=== PATIENT | female | born 1960 | race Caucasian/White ===

== ENCOUNTER 2018-08-28 12:06 | Day surgery (SDC) | payer MEDICARE ==
[~2018-08-28 12:06] MED LIST: LIDOCAINE 2% INJ 100 MG/5 ML SDV (FOR ANES.) As Ordered; PROPOFOL 200 MG/20 ML VIAL As Ordered
[2018-08-28] MEDS ORDERED: NS 1,000 ML IV (13:15)
[2018-08-28] MEDS ORDERED: PROPOFOL 200 MG/20 ML VIAL As Ordered (14:14)
== END 2018-08-28 14:45 | disposition home or self-care (01) ==
LOC: M OPP 12:06
DX: K29.70 Gastritis, unspecified, without bleeding (principal); K31.89 Other diseases of stomach and duodenum; Z87.19 Personal history of other diseases of the digestive system; K21.9 Gastro-esophageal reflux disease without esophagitis; R12 Heartburn; M19.90 Unspecified osteoarthritis, unspecified site; M48.00 Spinal stenosis, site unspecified; G43.909 Migraine, unspecified, not intractable, without status migrainosus; Z78.0 Asymptomatic menopausal state; R06.83 Snoring; Z87.442 Personal history of urinary calculi; Z98.1 Arthrodesis status; F17.210 Nicotine dependence, cigarettes, uncomplicated; Z88.5 Allergy status to narcotic agent; Z91.013 Allergy to seafood; Z80.3 Family history of malignant neoplasm of breast; Z80.8 Family history of malignant neoplasm of other organs or systems
CPT/HCPCS: 43239

== ENCOUNTER → 2018-08-28 | Outpatient (CLI) | payer MEDICARE ==
[2018-08-28 12:45] LABS: BASO # 0.1 10^3/uL (0.0-0.2); BASO % 1.1 % (0.0-1.0); EOS # 0.2 10^3/uL (0.0-0.50); EOS % 2.1 % (0.0-3.0); HEMATOCRIT 43.3 % (36.0-47.0); IMMATURE GRANULOCYTE % 0.4 % (0-3.0); LYMPH # 3.1 10^3/uL (1.5-4.5); LYMPH % 37.9 % (24.0-44.0); MEAN CORPUSCULAR HEMOGLOBIN 31.6 pg (27.0-33.0); MEAN CORPUSCULAR HGB CONC 34.6 g/dl (32.0-36.5); MEAN CORPUSCULAR VOLUME 91.4 fl (80.0-96.0); MONO # 0.5 10^3/uL (0.0-0.8); MONO % 6.4 % (0.0-5.0); NEUTROPHILS # 4.2 10^3/uL (1.8-7.7); NEUTROPHILS % 52.1 % (36.0-66.0); PLATELET COUNT, AUTOMATED 243 10^3/uL (150-450); RED BLOOD COUNT 4.74 10^6/uL (4.00-5.40); RED CELL DISTRIBUTION WIDTH 12.1 % (11.5-14.5); WHITE BLOOD COUNT 8.1 10^3/uL (4.0-10.0)
[2018-08-28 13:42] LABS: GOLD SPEC TUBE RECIEVED
[2018-08-29 00:04] LABS: BLOOD UREA NITROGEN 11 MG/DL (7-18)
[2018-08-29 00:04] LABS: CREATININE FOR GFR 0.65 MG/DL (0.55-1.30); FERRITIN 183 NG/ML (8-252); GLOMERULAR FILTRATION RATE > 60.0 (>51); IRON (FE) 99 UG/DL (50-170); PERCENT SATURATION 25.3 % (13.2-45.0); TOTAL IRON BINDING CAPACITY 392 UG/DL (250-450)
[2018-08-29 00:09] LABS: FOLATE 19.2 NG/ML
[2018-08-31 00:08] LABS: ANTI-PARIETAL CELL ANTIBODY 1.1 Units (0.0-20.0)
[2018-08-31 00:08] LABS: INTRINSIC FACTOR ANTIBODY 1.1 AU/mL (0.0-1.1)
== END ==
LOC: M LAB 11:48
DX: K29.70 Gastritis, unspecified, without bleeding (principal)

== ENCOUNTER → 2019-02-27 | Outpatient (REF) | payer MEDICARE ==
[~2019-02-27] MED LIST changes: -LIDOCAINE 2% INJ 100 MG/5 ML SDV (FOR ANES.) As Ordered; -PROPOFOL 200 MG/20 ML VIAL As Ordered; +VITA200016 PO; +VITA500T3 PO
== END ==
LOC: M LAB LCGH 14:59
PROVIDERS: ATTEND Nurse Practitioner Family
DX: D22.5 Melanocytic nevi of trunk (principal)

== ENCOUNTER → 2020-08-18 | Outpatient (CLI) | payer MEDICARE ==
[~2020-08-18] MED LIST changes: +CYAN500T8 PO; -VITA500T3 PO
[2020-08-18 14:10] LABS: BASO # 0.1 10^3/uL (0.0-0.2); BASO % 0.7 % (0.0-1.0); EOS # 0.2 10^3/uL (0.0-0.5); HEMATOCRIT 43.3 % (36.0-47.0); LYMPH % 36.9 % (24.0-44.0); MEAN CORPUSCULAR HEMOGLOBIN 30.4 pg (27.0-33.0); MEAN CORPUSCULAR HGB CONC 32.3 g/dl (32.0-36.5); MEAN CORPUSCULAR VOLUME 93.9 fl (80.0-96.0); MONO # 0.6 10^3/uL (0.0-0.8); MONO % 6.8 % (0.0-5.0); NEUTROPHILS # 4.4 10^3/uL (1.5-8.5); NEUTROPHILS % 53.2 % (36.0-66.0); PLATELET COUNT, AUTOMATED 249 10^3/uL (150-450); RED BLOOD COUNT 4.61 10^6/uL (4.00-5.40); WHITE BLOOD COUNT 8.2 10^3/uL (4.0-10.0)
[2020-08-18 14:42] LABS: ALBUMIN 3.8 GM/DL (3.2-5.2); ALT/SGPT 21 U/L (12-78); BILIRUBIN,DIRECT 0.1 MG/DL (0.0-0.2); BILIRUBIN,TOTAL 0.4 MG/DL (0.2-1.0); BLOOD UREA NITROGEN 13 MG/DL (7-18); CREATININE FOR GFR 0.82 MG/DL (0.55-1.30); GLOMERULAR FILTRATION RATE > 60.0 (>51); IRON (FE) 82 UG/DL (50-170); PERCENT SATURATION 20.4 % (13.2-45.0); TOTAL IRON BINDING CAPACITY 401 UG/DL (250-450); TOTAL PROTEIN 7.3 GM/DL (6.4-8.2)
[2020-08-18 14:51] LABS: VITAMIN B12 LEVEL 974 PG/ML (247-911)
[2020-08-18 14:52] LABS: FOLATE 9.9 NG/ML (>5.4)
[2020-08-18 14:58] LABS: H PYLORI QUALITATIVE IgG NEGATIVE (NEGATIVE)
== END ==
LOC: M LAB 12:48
PROVIDERS: ATTEND Internal Medicine Gastroenterology
DX: K29.70 Gastritis, unspecified, without bleeding (principal)

== ENCOUNTER → 2020-10-04 | Outpatient (CLI) | payer MEDICARE ==
[~2020-10-04] MED LIST changes: +PEPC40TA12 PO
== END ==
LOC: M LABSMTC 10:08
PROVIDERS: ATTEND Anesthesiology
DX: Z01.812 Encounter for preprocedural laboratory examination (principal); Z20.828 Contact with and (suspected) exposure to other viral communicable diseases

== ENCOUNTER 2020-10-09 11:48 | Day surgery (SDC) | payer MEDICARE ==
[~2020-10-09] VITALS: Ht 167.6 cm; Wt 79.4 kg
[~2020-10-09 11:48] MED LIST changes: +CYAN500T14 PO; -CYAN500T8 PO; +NS 1,000 ML IV ONE
[2020-10-09] MEDS ORDERED: propofoL 500 MG/50 ML VIAL As Ordered ONE (13:57)
[2020-10-09] MEDS ORDERED: LIDOCAINE 2% 100MG/5ML SDV (FOR ANES.) As Ordered ONE (13:57)
[2020-10-09] MEDS ORDERED: fentaNYL 100 MCG/2 ML INJECTION (J3010) As Ordered ONE (13:57)
[2020-10-09] MEDS ORDERED: ePHEDrine SULFATE 25 MG/5 ML(5MG/ML) SYRINGE As Ordered ONE (14:15)
--- NOTE | 2020-10-09 14:46 | ROOR ---
Patient Name: Munira Bernabe Procedure Date: 10/09/2020 2:00 PM Date of : 1960 Age: 60 Room: [facility] Gender: Female Note Status: Finalized Procedure: Upper GI endoscopy Indications: Epigastric abdominal pain Providers: Kyle Donovan MD Referring MD: 1. No Referring Physician 1. No Referring Physician, Admin. Requesting Provider: Medicines: Monitored Anesthesia Care Complications: No immediate complications. Procedure: Pre-Anesthesia Assessment: - Prior to the procedure, a History and Physical was performed, and patient medications and allergies were reviewed. The patient is competent. The risks and benefits of the procedure and the sedation options and risks were discussed with the patient. All questions were answered and informed consent was obtained. Patient identification and proposed procedure were verified by the physician, the nurse and the anesthesiologist in the procedure room. Mental Status Examination: alert and oriented. Airway Examination: normal oropharyngeal airway and neck mobility. Respiratory Examination: clear to auscultation. CV Examination: normal. Prophylactic Antibiotics: The patient does not require prophylactic antibiotics. Prior Anticoagulants: The patient has taken no previous anticoagulant or antiplatelet agents. ASA Grade Assessment: II - A patient with mild systemic disease. After reviewing the risks and benefits, the patient was deemed in satisfactory condition to undergo the procedure. The anesthesia plan was to use monitored anesthesia care (MAC). Immediately prior to administration of medications, the patient was re-assessed for adequacy to receive sedatives. The heart rate, respiratory rate, oxygen saturations, blood pressure, adequacy of pulmonary ventilation, and response to care were monitored throughout the procedure. The physical status of the patient was re-assessed after the procedure. The Endoscope was introduced through the mouth, and advanced to the second part of duodenum. The upper GI endoscopy was accomplished without difficulty. The patient tolerated the procedure well. Findings: The examined esophagus was normal. Scattered moderate inflammation characterized by erosions, erythema, friability, granularity and linear erosions was found in the gastric body and in the gastric antrum. Biopsies were taken with a cold forceps for Helicobacter pylori testing. Verification of patient identification for the specimen was done by the physician and nurse using the patient's name, date and medical record number. Estimated blood loss was minimal. Scattered moderate inflammation characterized by erythema, friability and granularity was found in the duodenal bulb and in the second portion of the duodenum. Biopsies for histology were taken with a cold forceps for evaluation of celiac disease. Impression: - Normal esophagus. - Gastritis. Biopsied. - Duodenitis. Biopsied. Recommendation: - Patient has a contact number available for emergencies. The signs and symptoms of potential delayed complications were discussed with the patient. Return to normal activities tomorrow. Written discharge instructions were provided to the patient. - High fiber diet. - Continue present medications. - Await pathology results. - Use Protonix (pantoprazole) 40 mg PO twice daily - to be taken in morning (1/2 hour before breakfast) and at bedtime ( atleast 3 hours after last meal) for 6 weeks. - Telephone GI clinic for pathology results in 2 weeks. - Return to primary care physician. Procedure Code(s): --- Professional --- 54430, Esophagogastroduodenoscopy, flexible, transoral; with biopsy, single or multiple Diagnosis Code(s): --- Professional --- K29.70, Gastritis, unspecified, without bleeding K29.80, Duodenitis without bleeding R10.13, Epigastric pain CPT copyright 2019 [employer]. All rights reserved. The codes documented in this report are preliminary and upon bindery operator review may be revised to meet current compliance requirements. Kyle Donovan MD Kyle Donovan MD 10/09/2020 2:46:03 PM Electronically signed by Kyle Donovan MD Number of Addenda: 0 Note Initiated On: 10/09/2020 2:00 PM Estimated Blood Loss: Estimated blood loss was minimal.
[2020-10-09 14:52] VITALS: BP 134/60
--- NOTE | 2020-10-09 15:09 | ROOR ---
Patient Name: Munira Bernabe Procedure Date: 10/09/2020 2:01 PM Date of : 1960 Age: 60 Room: [facility] Gender: Female Note Status: Finalized Procedure: Colonoscopy Indications: Chronic diarrhea Providers: Kyle Donovan MD Referring MD: 1. No Referring Physician 1. No Referring Physician, Admin. Requesting Provider: Medicines: Monitored Anesthesia Care Complications: No immediate complications. Procedure: Pre-Anesthesia Assessment: - Prior to the procedure, a History and Physical was performed, and patient medications and allergies were reviewed. The patient is competent. The risks and benefits of the procedure and the sedation options and risks were discussed with the patient. All questions were answered and informed consent was obtained. Patient identification and proposed procedure were verified by the physician. Mental Status Examination: alert and oriented. Airway Examination: normal oropharyngeal airway and neck mobility. Respiratory Examination: clear to auscultation. CV Examination: normal. Prophylactic Antibiotics: The patient does not require prophylactic antibiotics. Prior Anticoagulants: The patient has taken no previous anticoagulant or antiplatelet agents. ASA Grade Assessment: II - A patient with mild systemic disease. After reviewing the risks and benefits, the patient was deemed in satisfactory condition to undergo the procedure. The anesthesia plan was to use monitored anesthesia care (MAC). Immediately prior to administration of medications, the patient was re-assessed for adequacy to receive sedatives. The heart rate, respiratory rate, oxygen saturations, blood pressure, adequacy of pulmonary ventilation, and response to care were monitored throughout the procedure. The physical status of the patient was re-assessed after the procedure. The Colonoscope was introduced through the anus and advanced to the terminal ileum, with identification of the appendiceal orifice and IC valve. The colonoscopy was performed without difficulty. The patient tolerated the procedure well. The quality of the bowel preparation was good. The terminal ileum, ileocecal valve, appendiceal orifice, and rectum were photographed. Scope insertion time was 3 minutes. Scope withdrawal time was 9 minutes. The total duration of the procedure was 12 minutes. Findings: The perianal and digital rectal examinations were normal. Three sessile polyps were found in the transverse colon and ascending colon. The polyps were 3 to 5 mm in size. These polyps were removed with a cold snare. Resection and retrieval were complete. Non-bleeding external and internal hemorrhoids were found during retroflexion. The hemorrhoids were medium-sized. Normal mucosa was found in the entire colon. Biopsies for histology were taken with a cold forceps from the right colon and left colon for evaluation of microscopic colitis. A single small angioectasia without bleeding was found at the ileocecal valve. Impression: - Three 3 to 5 mm polyps in the transverse colon and in the ascending colon, removed with a cold snare. Resected and retrieved. - Non-bleeding external and internal hemorrhoids. - Normal mucosa in the entire examined colon. Biopsied. - A single non-bleeding colonic angioectasia. Recommendation: - Patient has a contact number available for emergencies. The signs and symptoms of potential delayed complications were discussed with the patient. Return to normal activities tomorrow. Written discharge instructions were provided to the patient. - Continue present medications. - Await pathology results. - Resume previous diet. - Repeat colonoscopy in 3 - 5 years for surveillance based on pathology results. - Telephone GI clinic for pathology results in 2 weeks. - Return to primary care physician. Procedure Code(s): --- Professional --- 34441, Colonoscopy, flexible; with removal of tumor(s), polyp(s), or other lesion(s) by snare technique 40329, 59, Colonoscopy, flexible; with biopsy, single or multiple Diagnosis Code(s): --- Professional --- K63.5, Polyp of colon K64.8, Other hemorrhoids K55.20, Angiodysplasia of colon without hemorrhage K52.9, Noninfective gastroenteritis and colitis, unspecified CPT copyright 2019 [employer]. All rights reserved. The codes documented in this report are preliminary and upon sign poster review may be revised to meet current compliance requirements. Kyle Donovan MD Kyle Donovan MD 10/09/2020 3:09:25 PM Electronically signed by Kyle Donovan MD Number of Addenda: 0 Note Initiated On: 10/09/2020 2:01 PM Estimated Blood Loss: Estimated blood loss: none.
== END 2020-10-09 15:00 | disposition home or self-care (01) ==
LOC: M OPP 11:48
PROVIDERS: ATTEND Internal Medicine Gastroenterology
DX: K63.5 Polyp of colon (principal); K55.20 Angiodysplasia of colon without hemorrhage; K64.8 Other hemorrhoids; K52.9 Noninfective gastroenteritis and colitis, unspecified; K29.70 Gastritis, unspecified, without bleeding; K29.80 Duodenitis without bleeding; R10.13 Epigastric pain; K76.0 Fatty (change of) liver, not elsewhere classified; Z88.5 Allergy status to narcotic agent; Z87.891 Personal history of nicotine dependence
CPT/HCPCS: 43239; 45380; 45385; 88305; J3010

== ENCOUNTER → 2022-12-19 | Outpatient (CLI) | payer MEDICARE ==
[~2022-12-19] MED LIST changes: +AUGM500T34 PO; +B-12100010 PO; +D3 S1CAP3 PO; +LETR2.5T2 PO; -NS 1,000 ML IV ONE; +TRAM50TA2 PO; +VITA250T26 PO; +ZINC100T3 PO; +ZINC30CA PO; +[UNRECOGNIZED DRUG - OTHER] PO
== END ==
LOC: M PLALAB 12:13
PROVIDERS: ATTEND Surgery
DX: Z13.71 Encounter for nonprocreative screening for genetic disease carrier status (principal); Z80.3 Family history of malignant neoplasm of breast; Z80.8 Family history of malignant neoplasm of other organs or systems

== ENCOUNTER → 2022-12-21 | Outpatient (CLI) | payer MEDICARE ==
[~2022-12-21] MED LIST changes: -AUGM500T34 PO; -D3 S1CAP3 PO; -LETR2.5T2 PO; -TRAM50TA2 PO; -ZINC30CA PO; -[UNRECOGNIZED DRUG - OTHER] PO
[2022-12-21 16:35] VITALS: BP 130/84
== END ==
LOC: M WHCPRO 14:47
PROVIDERS: ATTEND Surgery
DX: C34.92 Malignant neoplasm of unspecified part of left bronchus or lung (principal); N63.25 Unspecified lump in the left breast, overlapping quadrants
CPT/HCPCS: 10035; 77065; A4648

== ENCOUNTER 2023-01-10 06:19 | Day surgery (SDC) | payer MEDICARE ==
[~2023-01-10] VITALS: Ht 167.6 cm; Wt 75.3 kg
[~2023-01-10 06:19] MED LIST changes: +D3 S1CAP3 PO; +HEPARIN SOD (PORCINE) 5000UNITS/ML 1ML VIAL/SYRINGE SQ ONE; +ZINC30CA PO; +[UNRECOGNIZED DRUG - OTHER] PO; +ceFAZolin SOD 2 GM in IV 1 EA IV ONE
[2023-01-10] MEDS ORDERED: fentaNYL 100 MCG/2 ML INJECTION As Ordered ONE (06:58)
[2023-01-10] MEDS ORDERED: LIDOCAINE 2% 100MG/5ML SDV (FOR ANES.) As Ordered ONE (06:59)
[2023-01-10] MEDS ORDERED: MIDAZOLAM INJ 2MG/2ML VIAL As Ordered ONE (06:59)
[2023-01-10] MEDS ORDERED: propofoL 200 MG/20 ML VIAL As Ordered ONE ×2 (06:59→12:09)
[2023-01-10] MEDS ORDERED: ROCURONIUM BROMIDE 50MG/5ML VIAL As Ordered ONE (07:00)
[2023-01-10] MEDS ORDERED: ONDANSETRON 4MG 2ML VIAL As Ordered ONE (07:03)
[2023-01-10] MEDS ORDERED: LR 1,000 ML IV SCH ×2 (07:30→14:10)
[2023-01-10] MEDS ORDERED: LIDOCAINE 1% SDV 30ML VIAL As Ordered ONE (09:12)
[2023-01-10] MEDS ORDERED: BUPIVACAINE HCL 0.25% 30ML VIAL As Ordered ONE (09:12)
[2023-01-10] MEDS ORDERED: HYDROmorphone HCL 2MG/ML 1ML VIAL As Ordered ONE (10:59)
[2023-01-10] MEDS ORDERED: ACETAMINOPHEN 1000MG 100ML IV BAG As Ordered ONE (10:59)
[2023-01-10] MEDS ORDERED: ePHEDrine SULFATE 25 MG/5 ML(5MG/ML) SYRINGE As Ordered ONE (12:16)
[2023-01-10] MEDS ORDERED: ONDANSETRON 4MG 2ML VIAL IV PRN (14:10)
[2023-01-10] MEDS ORDERED: METOCLOPRAMIDE INJ 10MG/2ML VIAL IV PRN (14:10)
[2023-01-10] MEDS ORDERED: fentaNYL 100 MCG/2 ML INJECTION IV PRN (14:10)
[2023-01-10] MEDS ORDERED: oxyCODONE 5MG TAB PO PRN (14:10)
[2023-01-10] MEDS ORDERED: TRAM50TA2 PO (14:19)
[2023-01-10] MEDS: HYDROMORPHONE HCL 0.5 MG/ 0.5 ML SYRINGE IV PRN ×2 (14:48→14:58)
[2023-01-10 16:29] VITALS: BP 127/62
== END 2023-01-10 16:25 | disposition home or self-care (01) ==
LOC: M SDC 06:19
PROVIDERS: ATTEND Surgery
DX: D05.12 Intraductal carcinoma in situ of left breast (principal); K21.9 Gastro-esophageal reflux disease without esophagitis; M54.2 Cervicalgia; M48.00 Spinal stenosis, site unspecified; Z79.899 Other long term (current) drug therapy; Z88.5 Allergy status to narcotic agent; Z91.040 Latex allergy status; Z91.013 Allergy to seafood
CPT/HCPCS: 19302; 36415; 76942; 78195; 86850; 86900; 86901; 88307; 93971; A4648; A9520; J0131; J0690; J1100; J1170; J1644; J2250; J2405; J2765; J3010

== ENCOUNTER → 2023-01-23 | Outpatient (CLI) | payer MEDICARE ==
[~2023-01-23] MED LIST changes: +AUGM500T34 PO; -HEPARIN SOD (PORCINE) 5000UNITS/ML 1ML VIAL/SYRINGE SQ ONE; +LETR2.5T2 PO; +TRAM50TA2 PO; -ceFAZolin SOD 2 GM in IV 1 EA IV ONE
== END ==
LOC: M ONCR 09:01
PROVIDERS: ATTEND General Practice
DX: C50.412 Malignant neoplasm of upper-outer quadrant of left female breast (principal); M19.90 Unspecified osteoarthritis, unspecified site; Z80.3 Family history of malignant neoplasm of breast; Z87.442 Personal history of urinary calculi; Z87.891 Personal history of nicotine dependence; Z88.5 Allergy status to narcotic agent; Z91.040 Latex allergy status; Z91.013 Allergy to seafood

== ENCOUNTER 2023-02-21 11:05 | Outpatient (RCR) | payer MEDICARE | END 2023-03-05 | LOC: M ONCR 11:05 | PROVIDERS: ATTEND General Practice | DX: C50.412 Malignant neoplasm of upper-outer quadrant of left female breast (principal) ==

== ENCOUNTER 2023-06-19 08:49 | Day surgery (SDC) | payer MEDICARE ==
[~2023-06-19] VITALS: Ht 165.1 cm; Wt 74.8 kg
[~2023-06-19 08:49] MED LIST changes: +BACT800T5 PO; +TAMS1CAP17 PO; +VITA100017 PO; +VITA500C24 PO; +ceFAZolin SOD 2 GM in IV 1 EA IV ONE
[2023-06-19] MEDS ORDERED: fentaNYL 100 MCG/2 ML INJECTION As Ordered ONE ×2 (09:45→12:29)
[2023-06-19] MEDS ORDERED: LIDOCAINE 2% 100MG/5ML SDV (FOR ANES.) As Ordered ONE (09:45)
[2023-06-19] MEDS ORDERED: KETOROLAC 60MG 2ML VIAL As Ordered ONE (09:45)
[2023-06-19] MEDS ORDERED: ONDANSETRON 4MG 2ML VIAL As Ordered ONE (09:45)
[2023-06-19] MEDS ORDERED: propofoL 200 MG/20 ML VIAL As Ordered ONE (09:45)
[2023-06-19] MEDS ORDERED: MIDAZOLAM INJ 2MG/2ML VIAL As Ordered ONE (09:45)
[2023-06-19] MEDS ORDERED: ISOVUE-300 61% 100ML VIAL As Ordered ONE (10:22)
[2023-06-19] MEDS ORDERED: ACETAMINOPHEN 1000MG 100ML IV BAG As Ordered ONE (10:51)
[2023-06-19] MEDS ORDERED: PERCOCET 5MG/325MG TAB PO PRN (12:25)
[2023-06-19] MEDS ORDERED: oxyCODONE 5MG TAB PO PRN (12:30)
[2023-06-19] MEDS ORDERED: ONDANSETRON 4MG 2ML VIAL IV PRN (12:30)
[2023-06-19] MEDS: fentaNYL 100 MCG/2 ML INJECTION IV PRN ×4 (12:30→12:47)
[2023-06-19 13:10] VITALS: BP 146/65; TEMP 97; O2SAT 98
[2023-06-26 15:08] LABS: CA Oxalate Dihy 70 % (.); Ca Ox Monohydrate 30 % (.); Size 5x4 mm (.)
== END 2023-06-19 13:46 | disposition home or self-care (01) ==
LOC: M SDC 08:49
PROVIDERS: ATTEND Urology
DX: N20.1 Calculus of ureter (principal); K21.9 Gastro-esophageal reflux disease without esophagitis; Z85.3 Personal history of malignant neoplasm of breast; Z92.3 Personal history of irradiation; G62.9 Polyneuropathy, unspecified; G43.909 Migraine, unspecified, not intractable, without status migrainosus; Z88.5 Allergy status to narcotic agent; Z91.040 Latex allergy status; Z91.013 Allergy to seafood; Z79.899 Other long term (current) drug therapy
CPT/HCPCS: 52356; 76000; 82365; C1769; C1894; C2617; J0131; J0690; J1100; J1885; J2250; J2405; J3010; Q9967

== ENCOUNTER → 2023-08-08 | Outpatient (CLI) | payer MEDICARE ==
[~2023-08-08] MED LIST changes: -ceFAZolin SOD 2 GM in IV 1 EA IV ONE
== END ==
LOC: M WHC 10:59
PROVIDERS: ATTEND Nurse Practitioner Women's Health
DX: C50.912 Malignant neoplasm of unspecified site of left female breast (principal)

== ENCOUNTER → 2023-08-23 | Outpatient (CLI) | payer MEDICARE | LOC: M ONCR 10:36 | PROVIDERS: ATTEND Radiology Radiation Oncology | DX: C50.412 Malignant neoplasm of upper-outer quadrant of left female breast (principal); N64.59 Other signs and symptoms in breast; I89.0 Lymphedema, not elsewhere classified; Z98.890 Other specified postprocedural states; Z71.2 Person consulting for explanation of examination or test findings; Z92.3 Personal history of irradiation; Z87.891 Personal history of nicotine dependence; Z88.5 Allergy status to narcotic agent; Z91.013 Allergy to seafood; Z91.040 Latex allergy status ==

== ENCOUNTER → 2024-03-12 | Outpatient (CLI) | payer MEDICARE ==
[~2024-03-12] MED LIST changes: +GABA-282 PO; +TAMO20TA8 PO; +TIZA10TA PO; +ZINC220CA PO
== END ==
LOC: M WHC 13:49
PROVIDERS: ATTEND Nurse Practitioner Women's Health
DX: C50.912 Malignant neoplasm of unspecified site of left female breast (principal); R92.8 Other abnormal and inconclusive findings on diagnostic imaging of breast; N63.25 Unspecified lump in the left breast, overlapping quadrants; N63.21 Unspecified lump in the left breast, upper outer quadrant
CPT/HCPCS: 76642; 77066; G0279